=== PATIENT | male | born 1960 ===

== ENCOUNTER 2017-09-16 14:57 | Emergency (ER) | payer OTHER ==
[2017-09-16] MEDS ORDERED: Sodium Chloride 0.9% 500 ML IV ONE (15:17)
--- NOTE | 2017-09-16 15:19 | ED PDOC ---
Syncope/Near Syncope/Dizziness Time Seen by Provider: 09/16/17 15:18 Chief Complaint (Nursing): Dizziness/Lightheaded Chief Complaint (Provider): dizziness History Per: Patient (57 y/o male here with complaint of dizziness associated with walking to right today. Denies any vomiting but notes nausea. ) Past Medical History Reviewed: Historical Data, Nursing Documentation, Vital Signs Vital Signs: Last Vital Signs Temp 98.0 F 09/16/17 15:00 Pulse 78 09/16/17 15:00 Resp 17 09/16/17 15:00 BP 122/78 09/16/17 15:04 Pulse Ox 97 09/16/17 15:00 - Family History Family History: States: Stroke - Allergies Allergies/Adverse Reactions: Allergies Allergy/AdvReac Type Severity Reaction Status Date / Time No Known Allergies Allergy Verified 09/16/17 15:00 Review of Systems ROS Statement: Except As Marked, All Systems Reviewed And Found Negative Physical Exam - Reviewed Nursing Documentation Reviewed: Yes Vital Signs Reviewed: Yes - Physical Exam Appears: Positive for: Well, Non-toxic, No Acute Distress Head Exam: Positive for: ATRAUMATIC, NORMAL INSPECTION, NORMOCEPHALIC Skin: Positive for: Normal Color, Warm, DRY Eye Exam: Positive for: EOMI, Normal appearance, PERRL ENT: Positive for: Normal ENT Inspection Neck: Positive for: Normal, Painless ROM Cardiovascular/Chest: Positive for: Regular Rate, Rhythm Respiratory: Positive for: CNT, Normal Breath Sounds Gastrointestinal/Abdominal: Positive for: Normal Exam, Soft Back: Positive for: Normal Inspection Extremity: Positive for: Normal ROM Neurologic/Psych: Positive for: Alert, Oriented - Laboratory Results Result Diagrams: 09/16/17 15:37 09/16/17 15:37 - ECG ECG Rhythm: Positive for: Sinus Rhythm (nsr 77bpm no ectopy no acute changes ) O2 Sat by Pulse Oximetry: 97 - Progress ED Course And Treament: antivert 25 mg x 1 dose reglan 10 mg iv x dose ns 500 ml bolus BRAIN: There is a large extra-axial hyperdensity identified lateral to the left frontal lobe an anterior to left temporal lobe anterior pole occupying plaque extra-axial space from the middle cranial fossa up to nearly the lateral vertex of the left frontal lobe. Enhanced slightly remodeled the mid to inferior left calvarium in the places the midline brain structures minimally toward the right by less than 1 cm. Still, the local sulci are not prominently effaced with the overall pattern a chronic appearance likely reflecting a large arachnoid cyst measuring 3.5 x 6.5 x 10.0 cm. The differs diagnosis is an epidermoid. Follow- up MRI is recommended electively. Otherwise, there is no parenchymal edema or acute intracranial hemorrhage identified. Posterior fossa contents appear diffusely unremarkable VENTRICLES: Unremarkable. No hydrocephalus. CALVARIUM: Unremarkable. PARANASAL SINUSES: Unremarkable as visualized. No significant inflammatory changes. MASTOID AIR CELLS: Unremarkable as visualized. No inflammatory changes. OTHER FINDINGS: None. IMPRESSION: A large extra-axial hypodensity occupies the anterior middle left cranial fossa extra-axial space at the mid to inferior distribution measuring 10 cm greatest dimension suggestive of a probable arachnoid cyst though an epidermoid is not completely excluded. Follow-up brain MRI with and without contrast is advised for added characterization. The brain is otherwise unremarkable appearing. There is a limited rightward shift which is felt to be chronic as well as other features of chronic mass effect at the left cerebral hemisphere and calvarium Disposition - Clinical Impression Clinical Impression: Dizziness - Patient ED Disposition Is Patient to be Admitted: No - Disposition Disposition: Against Medical Advice Disposition Time: 17:24 Condition: FAIR Forms: [facility] ED School/Work Excuse
[2017-09-16 15:43] LABS: BASO # 0.1 K/uL (0.0-0.2); BASO % 0.8 % (0.0-2.0); EOS # 0.1 K/uL (0.0-0.7); EOS % 1.2 % (0.0-4.0); HEMOGLOBIN 16.2 g/dL (12.0-18.0); LYMPH # 2.9 K/uL (1.0-4.3); LYMPH % 31.4 % (20.0-40.0); MEAN CELL VOLUME 89.7 fl (80.0-94.0); MEAN CORPUSCULAR HEMOGLOBIN 30.5 pg (27.0-31.0); MEAN PLATELET VOLUME 8.7 fl (7.2-11.7); MONO # 0.6 K/uL (0.0-0.8); MONO % 6.4 % (0.0-10.0); NEUT # 5.5 K/uL (1.8-7.0); NEUT % 60.2 % (50.0-75.0); NRBC % 0.1 % (0.0-0.0); RBC 5.31 Mil/uL (4.40-5.90); RED CELL DISTRIBUTION WIDTH 13.9 % (11.5-14.5); WHITE BLOOD COUNT 9.2 K/uL (4.8-10.8)
[2017-09-16 16:00] LABS: ALB/GLOB RATIO 1.4 (1.0-2.1); ALT/SGPT 25 U/L (21-72); AST/SGOT 31 U/L (17-59); BLOOD UREA NITROGEN 12 mg/dl (9-20); CALCIUM 9.4 mg/dL (8.4-10.2); GFR AFRICAN-AMERICAN > 60; GFR NON-AFRICAN AMERICAN > 60
--- NOTE | 2017-09-16 16:31 | CT ---
Date of service: 09/16/2017 PROCEDURE: CT HEAD WITHOUT CONTRAST. HISTORY: vertigo COMPARISON: None available. TECHNIQUE: Axial computed tomography images were obtained through the head/brain without intravenous contrast. Radiation dose: Total exam DLP = 842.98 mGy-cm. This CT exam was performed using one or more of the following dose reduction techniques: Automated exposure control, adjustment of the mA and/or kV according to patient size, and/or use of iterative reconstruction technique. FINDINGS: BRAIN: There is a large extra-axial hyperdensity identified lateral to the left frontal lobe an anterior to left temporal lobe anterior pole occupying plaque extra-axial space from the middle cranial fossa up to nearly the lateral vertex of the left frontal lobe. Enhanced slightly remodeled the mid to inferior left calvarium in the places the midline brain structures minimally toward the right by less than 1 cm. Still, the local sulci are not prominently effaced with the overall pattern a chronic appearance likely reflecting a large arachnoid cyst measuring 3.5 x 6.5 x 10.0 cm. The differs diagnosis is an epidermoid. Follow-up MRI is recommended electively. Otherwise, there is no parenchymal edema or acute intracranial hemorrhage identified. Posterior fossa contents appear diffusely unremarkable VENTRICLES: Unremarkable. No hydrocephalus. CALVARIUM: Unremarkable. PARANASAL SINUSES: Unremarkable as visualized. No significant inflammatory changes. MASTOID AIR CELLS: Unremarkable as visualized. No inflammatory changes. OTHER FINDINGS: None. IMPRESSION: A large extra-axial hypodensity occupies the anterior middle left cranial fossa extra-axial space at the mid to inferior distribution measuring 10 cm greatest dimension suggestive of a probable arachnoid cyst though an epidermoid is not completely excluded. Follow-up brain MRI with and without contrast is advised for added characterization. The brain is otherwise unremarkable appearing. There is a limited rightward shift which is felt to be chronic as well as other features of chronic mass effect at the left cerebral hemisphere and calvarium.
[2017-09-16 16:59] VITALS: RESP 19
[2017-09-16 17:34] VITALS: BP 128/80; PULSE 78; TEMP 97; O2SAT 98
--- NOTE | 2017-09-17 13:32 | CARD ---
APPROVED REPORT Date of service: 09/16/2017 EKG Measurement Heart [id number] <Conclusion> Normal sinus rhythm Possible Inferior infarct, age undetermined Abnormal ECG
== END 2017-09-16 17:34 | disposition home or self-care (01) ==
LOC: H.ER 14:57
DX: R42 Dizziness and giddiness (principal); R11.0 Nausea
CPT/HCPCS: 70450; 80053; 82948; 83735; 84484; 85025; 93005; 96374; 99285; J2765; J7040